=== PATIENT | male | born 1995 | race Caucasian/White ===

== ENCOUNTER 2019-12-06 03:49 | Emergency (ER) | payer BC ==
[~2019-12-06] VITALS: Ht 172.7 cm; Wt 65.8 kg
[2019-12-06 04:35] VITALS: BP_SYST 166
[2019-12-06] MEDS ORDERED: LIDOCAINE/EPI 1% 1:100000 20 ML VIAL INJ ONE ×2 (07:00→07:06)
[2019-12-06] MEDS ORDERED: DIPH-TET-PERTUS Vaccine 0.5 ML VIAL (ADACEL) I.M. ONE (07:33)
[2019-12-06 08:17] VITALS: BP_SYST 134
== END 2019-12-06 08:05 | disposition home or self-care (01) ==
LOC: SED 03:49
DX: S71.112A Laceration without foreign body, left thigh, initial encounter (principal); W26.8XXA Contact with other sharp object(s), not elsewhere classified, initial encounter; Y93.89 Activity, other specified; Y92.89 Other specified places as the place of occurrence of the external cause; Y99.8 Other external cause status
CPT/HCPCS: 90715; 99283